=== PATIENT | male | born 1995 | race Caucasian/White ===

== ENCOUNTER 2021-12-14 22:02 | Emergency (ER) | payer OTHER ==
[~2021-12-14] VITALS: Ht 177.8 cm; Wt 87.2 kg
[2021-12-15] MEDS ORDERED: BACITRACIN OINTMENT 30GM TUBE TOP STA (01:02)
[2021-12-15] MEDS ORDERED: LIDOCAINE 1% MDV 20ML VIAL SC ONE (01:05)
[2021-12-15 01:54] VITALS: BP 140/68
== END 2021-12-15 01:56 | disposition home or self-care (01) ==
LOC: M ED 22:02
DX: S01.511A Laceration without foreign body of lip, initial encounter (principal); W22.8XXA Striking against or struck by other objects, initial encounter; Y92.9 Unspecified place or not applicable; Y93.9 Activity, unspecified; Y99.1 Military activity

== ENCOUNTER 2021-12-19 14:38 | Emergency (ER) | payer OTHER ==
[~2021-12-19] VITALS: Ht 177.8 cm; Wt 87.8 kg
[2021-12-19 14:39] VITALS: BP 147/67
== END 2021-12-19 15:34 | disposition home or self-care (01) ==
LOC: M ED 14:38
DX: Z48.02 Encounter for removal of sutures (principal)

== ENCOUNTER 2024-09-01 07:45 | Emergency (ER) | payer OTHER ==
[~2024-09-01] VITALS: Ht 177.8 cm; Wt 85.6 kg
[2024-09-01 08:32] LABS: BASO # 0.1 10^3/uL (0.0-0.2); BASO % 0.9 % (0.0-1.0); EOS % 0.3 % (0.0-3.0); HEMATOCRIT 42.2 % (42.0-52.0); HEMOGLOBIN 14.8 g/dl (13.5-17.5); LYMPH # 1.8 10^3/uL (1.5-5.0); LYMPH % 16.9 % (24.0-44.0); MEAN CORPUSCULAR HEMOGLOBIN 31.4 pg (27.0-33.0); MEAN CORPUSCULAR HGB CONC 35.1 g/dl (32.0-36.5); MEAN CORPUSCULAR VOLUME 89.4 fl (80.0-96.0); MONO # 0.8 10^3/uL (0.0-0.8); MONO % 7.7 % (2.0-8.0); NEUTROPHILS # 7.7 10^3/uL (1.5-8.5); NEUTROPHILS % 73.7 % (36.0-66.0); PLATELET COUNT, AUTOMATED 332 10^3/uL (150-450); RED BLOOD COUNT 4.72 10^6/uL (4.30-6.10); WHITE BLOOD COUNT 10.5 10^3/uL (4.0-10.0)
[2024-09-01] MEDS: ONDANSETRON 4MG 2ML VIAL IV ONE (08:34)
[2024-09-01] MEDS: NS 1,000 ML IV ONE (08:34)
[2024-09-01] MEDS ORDERED: ISOVUE-370 76% 100ML VIAL As Ordered ONE (08:42)
[2024-09-01 09:03] LABS: LIPASE 33 U/L (12-53)
[2024-09-01 09:04] LABS: AMYLASE 83 U/L (30-118)
[2024-09-01 09:05] LABS: ALBUMIN 4.5 G/DL (3.2-5.2); ALKALINE PHOSPHATASE 97 U/L (40-129); ALT/SGPT 27 U/L (7.0-40); AST/SGOT 28 U/L (<34); BILIRUBIN,DIRECT 0.2 MG/DL (<0.4); BILIRUBIN,TOTAL 0.8 MG/DL (0.3-1.2); BLOOD UREA NITROGEN 10 MG/DL (9-23); CALCIUM LEVEL 10.5 MG/DL (8.5-10.1); CARBON DIOXIDE LEVEL 25 MMOL/L (20-31); CHLORIDE LEVEL 101 MMOL/L (98-107); CK-MB VALUE MASS < 1.0 NG/ML (<3.6); CREATININE FOR GFR 0.98 MG/DL (0.70-1.30); GLOMERULAR FILTRATION RATE > 60.0 (>60); GLUCOSE, FASTING 116 MG/DL (60-100); POTASSIUM SERUM 4.3 MMOL/L (3.5-5.1); SODIUM LEVEL 136 MMOL/L (136-145)
[2024-09-01 09:13] LABS: CPK CREATINE PHOSPHOKINASE 150 U/L (46-171); MB/CK RELATIVE INDEX 0.66 (< OR =4)
[2024-09-01 11:00] VITALS: BP 134/65; TEMP 99.4; O2SAT 97
[2024-09-01] MEDS ORDERED: OMEP40CA4 PO (11:08)
[2024-09-01] MEDS ORDERED: CARA1TAB6 PO (11:08)
[2024-09-01] MEDS ORDERED: ONDA-282 PO (11:08)
== END 2024-09-01 11:31 | disposition home or self-care (01) ==
LOC: M ED 07:45
DX: R07.9 Chest pain, unspecified (principal); R10.9 Unspecified abdominal pain; K92.0 Hematemesis; I45.19 Other right bundle-branch block; K59.00 Constipation, unspecified; K76.0 Fatty (change of) liver, not elsewhere classified; F10.10 Alcohol abuse, uncomplicated; M54.50 Low back pain, unspecified; Z79.83 Long term (current) use of bisphosphonates; Z79.899 Other long term (current) drug therapy
CPT/HCPCS: 71260; 74177; 80047; 80048; 80076; 82150; 82550; 82553; 83690; 84484; 85025; 87040; 93005; 93041; 96361; 96374; 99285; J2405; Q9967